=== PATIENT | female | born 1990 | race Caucasian/White ===

== ENCOUNTER 2016-11-22 14:43 | Emergency (ER) | payer OTHER ==
[~2016-11-22] VITALS: Ht 170.2 cm; Wt 59.0 kg
[2016-11-22 14:45] VITALS: TEMP 36.7; Ht 170.2 cm; Wt 59.0 kg
[2016-11-22] MEDS ORDERED: ACETAMINOPHEN 500 MG TAB PO STA (15:01)
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
[2016-11-22] MEDS ORDERED: ONDANSETRON 4MG OD TAB PO STA (15:40)
[2016-11-22] MEDS ORDERED: OXYCODONE HCL IR 5 MG TAB (IMMEDIATE RELEASE) PO STA (15:40)
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
[2016-11-22] MEDS ORDERED: OXYC-57 PO (17:09)
[2016-11-22 17:29] VITALS: BP 119/79; PULSE 93; O2SAT 97
== END 2016-11-22 17:30 | disposition home or self-care (01) ==
LOC: C.EDC 14:44
DX: M54.5 Low back pain (principal); V43.62XA Car passenger injured in collision with other type car in traffic accident, initial encounter; F17.210 Nicotine dependence, cigarettes, uncomplicated